=== PATIENT | male | born 1945 | race Caucasian/White ===

== ENCOUNTER 2017-01-04 10:02 | Day surgery (SDC) | payer MEDICARE, OTHER ==
[~2017-01-04] VITALS: Ht 182.9 cm; Wt 118.2 kg
[2017-01-04] VITALS (14 sets, daily range): BP systolic 81–136; BP diastolic 55–93; PULSE 73–108; TEMP 97.5
[2017-01-04] MEDS ORDERED: ALEVE 220MG220 MG PO (10:20)
[2017-01-04] MEDS ORDERED: ZIAC 5/6.25MG T1 TAB PO (10:21)
[2017-01-04] MEDS ORDERED: VITAMIN D31000 I1 PO (10:22)
[2017-01-04] MEDS ORDERED: MAVIK2 MG PO (10:22)
[2017-01-04] MEDS ORDERED: LOPRESSOR 550 MG/TAB PO (10:22)
[2017-01-04] MEDS ORDERED: COUMADIN 3MG3 MG/TAB PO (10:23)
[2017-01-04] MEDS ORDERED: LIPITOR 40MG TA40 MG PO (10:24)
[2017-01-04 10:37] LABS: INR 2.5 (0.8-3.0); PROTHROMBIN TIME 28.4 SECONDS (9.7-12.8)
[2017-01-04 10:39] LABS: POTASSIUM 4.6 mmol/L (3.4-5.0)
[2017-01-04 11:14] LABS: THYROID STIMULATING HORMONE 2.74 uIU/mL (0.465-4.680)
[2017-01-04] MEDS ORDERED: MULTAQ400 MG PO (12:30)
== END 2017-01-04 14:42 | disposition home or self-care (01) ==
LOC: COL.CAR 10:02
PROVIDERS: Internal Medicine Cardiovascular Disease
DX: I48.91 Unspecified atrial fibrillation (principal); I25.10 Atherosclerotic heart disease of native coronary artery without angina pectoris; Z95.1 Presence of aortocoronary bypass graft; I82.409 Acute embolism and thrombosis of unspecified deep veins of unspecified lower extremity; Z79.01 Long term (current) use of anticoagulants; E78.5 Hyperlipidemia, unspecified; I10 Essential (primary) hypertension; I25.2 Old myocardial infarction; I34.0 Nonrheumatic mitral (valve) insufficiency
CPT/HCPCS: J2250; J3010

== ENCOUNTER 2017-01-11 09:14 | Inpatient (IN) | payer MEDICARE, OTHER ==
[~2017-01-11] VITALS: Ht 183 cm; Wt 125.8 kg
[2017-01-11] VITALS (10 sets, daily range): BP systolic 107–139; BP diastolic 60–102; PULSE 70–134; TEMP 97–98.3
[~2017-01-11 09:14] MED LIST: ALEVE 220MG220 MG PO; COUMADIN 3MG3 MG/TAB PO; LIPITOR 40MG TA40 MG PO; LOPRESSOR 550 MG/TAB PO; MAVIK2 MG PO; MULTAQ400 MG PO; VITAMIN D31000 I1 PO; ZIAC 5/6.25MG T1 TAB PO
[2017-01-11] MEDS ORDERED: PLAVIX 75MG TAB75 MG PO (09:41)
[2017-01-11 09:44] LABS: HEMATOCRIT 49.6 % (42.0-52.0); HEMOGLOBIN 16.5 g/dl (13.5-18.0); MEAN CELL VOLUME 98 fl (80.0-100.0); MEAN CORPUSCULAR HEMOGLOBIN 33 pg (27.0-31.0); MEAN CORPUSCULAR HGB CONC 33 g/dl (33.0-37.0); MEAN PLATELET VOLUME 9.5 fl (7.4-10.4); PLATELET COUNT 216 K/mm3 (130-400); RED BLOOD COUNT 5.06 M/mm3 (4.20-5.60); REDCELL DISTRIBUTION WIDTH-CV 13.4 % (11.5-14.5); WHITE BLOOD COUNT 7.8 K/mm3 (4.8-10.8)
[2017-01-11 09:48] LABS: INR 2.6 (0.8-3.0); PROTHROMBIN TIME 30.1 SECONDS (9.7-12.8)
[2017-01-11 09:53] LABS: ADJUSTED CALCIUM 8.7 mg/dL (8.4-10.2); ALBUMIN 4.2 gm/dL (3.5-5.0); BILIRUBIN,TOTAL 2.3 mg/dL (0.0-1.0); CALCIUM 8.9 mg/dL (8.4-10.2); CREATININE, serum 1.39 mg/dL (0.66-1.25); MAGNESIUM 1.9 mg/dL (1.6-2.3); POTASSIUM 4.6 mmol/L (3.4-5.0); TOTAL PROTEIN 7.5 gm/dL (6.4-8.2)
[2017-01-12 03:09] VITALS: BP 138/70; PULSE 70; TEMP 97.8
[2017-01-12 07:30] VITALS: BP 152/75; PULSE 62; TEMP 97.5
[2017-01-12 08:43] LABS: HEMATOCRIT 46.4 % (42.0-52.0); HEMOGLOBIN 15.5 g/dl (13.5-18.0); MEAN CELL VOLUME 101 fl (80.0-100.0); MEAN CORPUSCULAR HEMOGLOBIN 34 pg (27.0-31.0); MEAN CORPUSCULAR HGB CONC 33 g/dl (33.0-37.0); MEAN PLATELET VOLUME 9.7 fl (7.4-10.4); PLATELET COUNT 209 K/mm3 (130-400); RED BLOOD COUNT 4.61 M/mm3 (4.20-5.60); REDCELL DISTRIBUTION WIDTH-CV 13.4 % (11.5-14.5)
[2017-01-12 08:51] LABS: INR 2.5 (0.8-3.0); PROTHROMBIN TIME 28.3 SECONDS (9.7-12.8)
[2017-01-12 08:56] LABS: CALCIUM 8.7 mg/dL (8.4-10.2); CREATININE, serum 1.25 mg/dL (0.66-1.25); POTASSIUM 4.6 mmol/L (3.4-5.0)
[2017-01-12 09:04] LABS: MAGNESIUM 1.9 mg/dL (1.6-2.3)
[2017-01-12 11:03] VITALS: BP 130/69; PULSE 57; TEMP 98.1
[2017-01-12 15:15] VITALS: BP 107/66; PULSE 62; TEMP 98
[2017-01-12 19:43] VITALS: BP 117/61; PULSE 66; TEMP 97.9
[2017-01-13 00:09] VITALS: BP 130/73; PULSE 64; TEMP 96.9
[2017-01-13 03:31] VITALS: BP 133/64; PULSE 66; TEMP 97
[2017-01-13 07:20] VITALS: BP 153/77; PULSE 62; TEMP 97.7
[2017-01-13 07:54] LABS: HEMATOCRIT 43.1 % (42.0-52.0); HEMOGLOBIN 14.1 g/dl (13.5-18.0); MEAN CELL VOLUME 101 fl (80.0-100.0); MEAN CORPUSCULAR HEMOGLOBIN 33 pg (27.0-31.0); MEAN CORPUSCULAR HGB CONC 33 g/dl (33.0-37.0); MEAN PLATELET VOLUME 9.9 fl (7.4-10.4); PLATELET COUNT 192 K/mm3 (130-400); RED BLOOD COUNT 4.28 M/mm3 (4.20-5.60); REDCELL DISTRIBUTION WIDTH-CV 13.3 % (11.5-14.5); WHITE BLOOD COUNT 6.4 K/mm3 (4.8-10.8)
[2017-01-13 07:57] LABS: INR 2.7 (0.8-3.0); PROTHROMBIN TIME 31.4 SECONDS (9.7-12.8)
[2017-01-13 08:08] LABS: CALCIUM 8.4 mg/dL (8.4-10.2); CREATININE, serum 1.13 mg/dL (0.66-1.25); MAGNESIUM 1.8 mg/dL (1.6-2.3); POTASSIUM 4.4 mmol/L (3.4-5.0)
[2017-01-13] MEDS ORDERED: BETAPACE 120MG120 MG PO (09:33)
== END 2017-01-13 10:09 | disposition home or self-care (01) | DRG 310 ==
LOC: COL.CAR 09:14 → MEDICAL 11:36 → COL.CAR 12:15 → MEDICAL 01-13 10:09 → COL.CAR 01-16 14:00
PROVIDERS: Internal Medicine Cardiovascular Disease
PROC: 5A2204Z Restoration of Cardiac Rhythm, Single (ICD-10-PCS; principal; 2017-01-11)
DX: I48.0 Paroxysmal atrial fibrillation (principal); I10 Essential (primary) hypertension; E78.5 Hyperlipidemia, unspecified; I25.2 Old myocardial infarction; Z95.1 Presence of aortocoronary bypass graft; Z95.5 Presence of coronary angioplasty implant and graft; Z86.718 Personal history of other venous thrombosis and embolism; Z79.01 Long term (current) use of anticoagulants
CPT/HCPCS: J0282; J7120

== ENCOUNTER 2018-10-20 18:02 | Inpatient (IN) | payer MEDICARE, OTHER ==
--- NOTE | 2018-10-19 21:30 | NUR ---
Pt arrived to room 311, transerred per stretcher by ED staff. Pt awake, a&o, cooperative v cares. Pt reprts increased pain to RLE, denies fany other c/o. RLE noted to be warm et red, skin intact. Pt has no other c/o. IV patent. Pt denies further need. Call light in reach. will ocontinue c admit process.
[~2018-10-20] VITALS: Ht 177.8 cm; Wt 108.0 kg
[~2018-10-20 18:02] MED LIST changes: +BETAPACE 120MG120 MG PO; +PLAVIX 75MG TAB75 MG PO
[2018-10-20 18:56] LABS: BASO % 0.2 % (0.0-2.0); EOS % 0.2 % (0-4.0); GRAN # 14.9 (1.4-6.5); GRAN % 91.5 % (42.2-75.2); HEMOGLOBIN 17.2 g/dl (13.5-18.0); LYMPH # 0.3 (1.2-3.4); LYMPH % 1.8 % (20.0-51.0); MEAN CELL VOLUME 94 fl (80.0-100.0); MEAN CORPUSCULAR HEMOGLOBIN 31 pg (27.0-31.0); MEAN CORPUSCULAR HGB CONC 33 g/dl (33.0-37.0); MEAN PLATELET VOLUME 10.4 fl (7.4-10.4); MONO # 0.9 (0.1-0.6); MONO % 5.6 % (1.7-9.3); PLATELET COUNT 168 K/mm3 (130-400); RED BLOOD COUNT 5.64 M/mm3 (4.20-5.60); REDCELL DISTRIBUTION WIDTH-CV 13.3 % (11.5-14.5)
[2018-10-20 19:01] LABS: HEMATOCRIT 52.8 % (42.0-52.0)
[2018-10-20 19:04] LABS: INR 2.9 (0.8-3.0); PROTHROMBIN TIME 32.7 SECONDS (9.7-12.8)
[2018-10-20 19:08] LABS: COLLECTION METHOD CLEAN CATCH
[2018-10-20 19:12] LABS: C-REACTIVE PROTEIN 3.4 mg/dL (0.0-0.9); CALCIUM 8.6 mg/dL (8.4-10.2); CREATININE, serum 1.14 (0.66-1.25); POTASSIUM 4.8 mmol/L (3.4-5.0); TOTAL PROTEIN 7.5 gm/dL (6.4-8.2)
[2018-10-20 19:25] LABS: PH 5 (5-8); SQUAMOUS EPITHELIAL None Seen /hpf; URINE APPEARANCE Clear; URINE BACTERIA None Seen /hpf; URINE BILIRUBIN Negative (NEGATIVE); URINE BLOOD Negative (NEGATIVE); URINE COLOR Yellow; URINE GLUCOSE 1+ (NEGATIVE); URINE KETONE Negative (NEGATIVE); URINE LEUKOCYTE ESTERASE Negative (NEGATIVE); URINE NITRATE Negative (NEGATIVE); URINE PROTEIN(semi-quant) Negative (NEGATIVE); URINE RBC 0-2 /hpf; URINE UROBILINOGEN Negative (NEGATIVE)
[2018-10-20 21:20] VITALS: BP 107/55; PULSE 70; TEMP 99.2
--- NOTE | 2018-10-20 21:30 | NUR ---
Pt arrived to room 311, transferred via stretcher per ED staff. Pt a&o, cooperative c cares. IV patent. at bedside. Pt oriented to room, unit policies et current POC. Questions invited et answered, both verbalize understanding. Call light in reach. Will continue c admit process.
[2018-10-20] MEDS ORDERED: COUMADIN4 MG PO (21:59)
[2018-10-20 23:05] VITALS: BP 114/55; PULSE 75; TEMP 98.6
[2018-10-21] VITALS (7 sets, daily range): BP systolic 105–130; BP diastolic 40–92; PULSE 62–75; TEMP 98.1–99.7
[2018-10-21 06:52] LABS: HEMATOCRIT 43.5 % (42.0-52.0); MEAN CELL VOLUME 96 fl (80.0-100.0); MEAN CORPUSCULAR HGB CONC 32 g/dl (33.0-37.0); PLATELET COUNT 148 K/mm3 (130-400); RED BLOOD COUNT 4.53 M/mm3 (4.20-5.60); REDCELL DISTRIBUTION WIDTH-CV 13.4 % (11.5-14.5)
[2018-10-21 06:53] LABS: HEMOGLOBIN 13.8 g/dl (13.5-18.0); MEAN CORPUSCULAR HEMOGLOBIN 30 pg (27.0-31.0)
[2018-10-21 06:58] LABS: PROTHROMBIN TIME 34.6 SECONDS (9.7-12.8)
[2018-10-21 07:05] LABS: BILIRUBIN,TOTAL 1.6 mg/dL (0.0-1.0); CALCIUM 7.8 mg/dL (8.4-10.2); CREATININE, serum 1.23 (0.66-1.25); POTASSIUM 4.6 mmol/L (3.4-5.0); TOTAL PROTEIN 5.8 gm/dL (6.4-8.2)
[2018-10-21 07:15] LABS: EOSINOPHIL 1 % (0-4); LYMPHOCYTE 1 % (20.0-51.0); NEUTROPHILS 96 % (42.0-75.2); PLATELET ESTIMATE NORMAL (NORMAL)
--- NOTE | 2018-10-21 09:25 | NUR ---
Patient is awake and alert in room. Assessment complete RLE has marked borders to reddened areas. Leg is pink and slightly warm to touch. States it is not painful unless touched and it is very mild pain. Verbalizes he feels he much better and is anxious to get home. No other needs or concerns verbalized. Call light and personal items are within reach.
--- NOTE | 2018-10-21 11:05 | NUR ---
Initial visit; Patient thanked [employer] for looking in on him and offering God's blessings.
--- NOTE | 2018-10-21 11:46 | NUR ---
SW attended clinical rounds to discuss discharge planning. Patient lives independently at home with his . Patient's PCP is Dr Oswald in [place] and he obtains prescriptions from [facility] in [place]. Patient does not use any DME or home health services. Patient reports he does have a DPOA. SW does not anticipate any discharge needs.
--- NOTE | 2018-10-21 18:31 | NUR ---
PT RESTING IN BED AT THIS TIME.IVF INFUSING.DENIES ANY NEEDS AT THIS TIME.ble CELLULITIS IMPROVING.PT REMAINS ON VANC.WILL CONTINUE TOO MONITOR.CALL LIGHT IN REACH
--- NOTE | 2018-10-21 18:47 | NUR ---
REPORT GIVEN TO OJRDON CANNON.
--- NOTE | 2018-10-21 19:30 | NUR ---
Shift assessment complete. Pt up in bedside recliner, a&o, cooperative c cares Pt reports continued RLE pain "up to a 6 sometimes". Will provide prn pain as required. Pt denies any other c/o. INT patent. Tele in place. Call light in reach. Will monitor.
[2018-10-22 03:45] VITALS: BP 141/71; PULSE 75; TEMP 98.9
--- NOTE | 2018-10-22 05:16 | NUR ---
Pt resting in bed, condiion unchaged. Pt has rested well c very little cares. Pt continues to have little to no pain. Denies needs at this time. Call light in reach.
[2018-10-22 07:49] LABS: BASO % 0.1 % (0.0-2.0); EOS # 0.2 (0.0-0.7); EOS % 2.5 % (0-4.0); GRAN # 7.4 (1.4-6.5); GRAN % 76.6 % (42.2-75.2); HEMATOCRIT 44.9 % (42.0-52.0); HEMOGLOBIN 14.2 g/dl (13.5-18.0); LYMPH # 0.8 (1.2-3.4); LYMPH % 8.5 % (20.0-51.0); MEAN CELL VOLUME 96 fl (80.0-100.0); MEAN CORPUSCULAR HEMOGLOBIN 30 pg (27.0-31.0); MEAN CORPUSCULAR HGB CONC 32 g/dl (33.0-37.0); MEAN PLATELET VOLUME 9.8 fl (7.4-10.4); MONO # 1.2 (0.1-0.6); MONO % 11.9 % (1.7-9.3); PLATELET COUNT 147 K/mm3 (130-400); RED BLOOD COUNT 4.69 M/mm3 (4.20-5.60); REDCELL DISTRIBUTION WIDTH-CV 13.6 % (11.5-14.5)
[2018-10-22 07:52] VITALS: BP 132/56; PULSE 65; TEMP 98.7
[2018-10-22 07:55] LABS: INR 2.5 (0.8-3.0); PROTHROMBIN TIME 28.1 SECONDS (9.7-12.8)
[2018-10-22 07:57] LABS: CALCIUM 8.1 mg/dL (8.4-10.2); CREATININE, serum 1.05 (0.66-1.25); POTASSIUM 4.5 mmol/L (3.4-5.0)
--- NOTE | 2018-10-22 08:15 | NUR ---
Assessment complete. Pt sitting up in chair, A&O x 4. Breath sounds CTAB. BS active x 4. Pt denies pain at this time. Redness to right lower extremity within borders. IVF's infusing per orders through right wrist site without s/s of complications. No further needs reported. Call light in reach.
[2018-10-22] MEDS ORDERED: CEPHALEXIN500 M1 PO (10:24)
--- NOTE | 2018-10-22 12:53 | NUR ---
IV and tele discontinued per discharge orders. Discharge instructions reviewed with pt regarding new medication and follow-up appointment. Pt verbalizes understanding, discharged home, escorted out of facility via WC accompanied by NING Leong and pt's spouse.
== END 2018-10-22 12:55 | disposition home or self-care (01) | DRG 872 ==
LOC: COL.ER 18:02 → MEDICAL 20:41
PROVIDERS: Emergency Medicine; Nurse Practitioner Family; ADMIT Internal Medicine
DX: A41.9 Sepsis, unspecified organism (principal); L03.115 Cellulitis of right lower limb; E87.2 Acidosis; I50.22 Chronic systolic (congestive) heart failure; I11.0 Hypertensive heart disease with heart failure; E78.5 Hyperlipidemia, unspecified; I25.10 Atherosclerotic heart disease of native coronary artery without angina pectoris; I48.91 Unspecified atrial fibrillation; I34.0 Nonrheumatic mitral (valve) insufficiency; R65.20 Severe sepsis without septic shock; R73.9 Hyperglycemia, unspecified; R23.4 Changes in skin texture; Z95.1 Presence of aortocoronary bypass graft; Z86.718 Personal history of other venous thrombosis and embolism; Z79.01 Long term (current) use of anticoagulants; Z95.5 Presence of coronary angioplasty implant and graft; Z87.891 Personal history of nicotine dependence; Z79.1 Long term (current) use of non-steroidal anti-inflammatories (NSAID)
CPT/HCPCS: 99222-AI; 99239; J2543; J3370; J7030; J7040